=== PATIENT | male | born 1940 | race Hispanic/Latino ===

== ENCOUNTER 2018-11-22 12:22 | Inpatient (IN) | payer MEDICARE ==
[~2018-11-22] VITALS: Ht 177.8 cm; Wt 73.0 kg
[2018-11-22 13:08] LABS: HEMATOCRIT 28.4 % (42-54); MEAN CORPUSCULAR HEMOGLOBIN 33.3 pg (27.0-33.0); MEAN CORPUSCULAR HGB CONC 35.8 g/dL (32.0-36.0); MEAN CORPUSCULAR VOLUME 93.1 fL (79-99); PLATELET COUNT (AUTO) 317 K/uL (130-400); RED BLOOD CELL COUNT(AUTO) 3.05 MIL/uL (4.50-6.20); RED CELL DISTRIBUTION WIDTH 32.3 % (11.0-15.5); WHITE BLOOD COUNT (AUTO) 7.5 K/uL (4.8-10.8)
[2018-11-22 13:23] LABS: ALBUMIN 1.9 g/dL (3.5-5.0); CREATININE 0.9 mg/dL (0.5-1.5)
[2018-11-22 13:26] LABS: BILIRUBIN,TOTAL 32.4 mg/dL (0.2-1.0); POTASSIUM 2.5 mmol/L (3.5-5.1)
[2018-11-22] MEDS ORDERED: POTASSIUM CHLORIDE 10% ELIXIR 20 MEQ/15 ML UDCUP ONE (13:42)
[2018-11-22 14:15] LABS: LYMPHOCYTES % (MANUAL) 9 % (22-44); MONOCYTES % (MANUAL) 9 % (2-9); SEGMENTED NEUTROPHILS % 82 % (40-70)
[2018-11-22 14:16] LABS: MAN.DIFF COMMENT-IMPRESSION MANUAL DIFFERENTIAL; PLATELET MORPHOLOGY COMMENT ADEQUATE
[2018-11-22 15:10] LABS: TOTAL PROTEIN, SERUM 4.9 g/dL (6.0-8.3)
[2018-11-22] MEDS ORDERED: IOHEXOL-350 75 ML VIAL IV ONE (15:10)
[2018-11-22 16:26] LABS: APPEARANCE,URINE CLOUDY (CLEAR); BILIRUBIN,URINE LARGE (NEGATIVE); GLUCOSE, URINE (UA) 100 mg/dL (NEGATIVE); KETONES,URINE NEGATIVE (NEGATIVE); LEUKOCYTE ESTERASE ,URINE TRACE (NEGATIVE); NITRATE,URINE NEGATIVE (NEGATIVE); OCCULT BLOOD,URINE TRACE-LYSED (NEGATIVE); PROTEIN,URINE 30 mg/dL (NEGATIVE)
[2018-11-22 16:32] LABS: COLOR,URINE AMBER (YELLOW)
[2018-11-22 16:42] LABS: BACTERIA,URINE Few /HPF (None Seen)
[2018-11-22 16:43] LABS: COARSE GRANULAR CASTS,URINE 0-2 /LPF (None Seen); SQUAMOUS EPITHELIAL CELL,UR Few /HPF (0-2)
[2018-11-22] MEDS ORDERED: SODIUM CHLORIDE 0.9% 1000ML 1,000 ML IV SCH (17:06)
[2018-11-22] MEDS ORDERED: ONDANSETRON HCL 4 MG/2 ML VIAL IV PRN (17:15)
[2018-11-22] MEDS ORDERED: HYDRALAZINE HCL 20 MG/ML VIAL IV PRN (17:15)
[2018-11-22] MEDS ORDERED: LACTULOSE 20 GM/30 ML UDCUP PO PRN (17:15)
[2018-11-22] MEDS ORDERED: MEPERIDINE-PF 25 MG/ML SYG IV PRN (17:15)
[2018-11-22] MEDS ORDERED: ZOSYN 3.375GM+NS 50ML 50 ML IV ONE (17:32)
[2018-11-22] MEDS ORDERED: SODIUM CHLORIDE 0.9% 1000ML 1,000 ML IV ONE (17:39)
[2018-11-22] MEDS ORDERED: FAMOTIDINE/PF 20 MG/2 ML VIAL IV SCH (21:00)
[2018-11-23] MEDS ORDERED: ZOSYN 3.375GM+NS 50ML 50 ML IV SCH (01:00)
[2018-11-24] MEDS ORDERED: TRAM50TA4 PO (02:24)
[2018-11-24] MEDS ORDERED: vitamin b12 (02:24)
[2018-12-03] MEDS ORDERED: METO10TA41 PO (12:33)
== END 2018-11-22 19:23 | disposition left against medical advice (07) | DRG 446 ==
LOC: EDH 12:22 → EDHIP 17:06
PROVIDERS: ADMIT Internal Medicine; ATTEND Internal Medicine
DX: K83.1 Obstruction of bile duct (principal)
CPT/HCPCS: 36415; 74177; 76705; 80053; 81001; 82140; 85025; 87040; G0378; J2543; J7030; Q9967